=== PATIENT | female | born 1975 | race Caucasian/White ===

== ENCOUNTER → 2022-10-25 | Outpatient (CLI) | payer BC | END | disposition home or self-care (01) | LOC: XYW 08:49 | PROVIDERS: ATTEND Internal Medicine | DX: R07.1 Chest pain on breathing (principal) | CPT/HCPCS: 93306 ==

== ENCOUNTER → 2023-01-05 | Outpatient (CLI) | payer BC ==
[~2023-01-05] VITALS: Ht 152.4 cm; Wt 68.0 kg
[~2023-01-05] MED LIST: ADENOSINE 57 MG in GIVE UN-DILUTED 0 ML IV ONE
== END | disposition home or self-care (01) ==
LOC: XYW 08:29
PROVIDERS: ATTEND Internal Medicine
DX: R07.9 Chest pain, unspecified (principal)
CPT/HCPCS: 78452; 93017; A9500; J0153

== ENCOUNTER 2023-02-15 06:48 | Day surgery (SDC) | payer BC ==
[2023-02-15] VITALS (10 sets, daily range): BP systolic 94–110; BP diastolic 56–68; PULSE 47–71; RESP 10–14; O2SAT 98–100
[~2023-02-15] VITALS: Ht 152.4 cm; Wt 70.3 kg
[~2023-02-15 06:48] MED LIST changes: -ADENOSINE 57 MG in GIVE UN-DILUTED 0 ML IV ONE; +ASCO500T11 PO; +CHOL20007 PO; +FERR-7 PO; +MULT-1018 PO
[2023-02-15] MEDS ORDERED: IODIXANOL 320MG/ML 100ML BTL IV ONE (10:37)
[2023-02-15] MEDS ORDERED: LIDOCAINE 2%HCL (LOCAL ANESTH.) INJ 10ml MDV ONE (10:37)
[2023-02-15] MEDS ORDERED: LIDOCAINE 2%HCL (LOCAL ANESTH.) INJ 20ML MDV ONE (10:39)
[2023-02-15] MEDS ORDERED: fentaNYL CITRATE 100 MCG/2 ML VL ONE (10:42)
[2023-02-15] MEDS ORDERED: ANGIOMAX 250 MG VIAL IV ONE (10:42)
[2023-02-15] MEDS ORDERED: SODIUM CHL 0.9% 0 ML ONE (10:43)
[2023-02-15] MEDS ORDERED: MIDAZOLAM HCL 2MG/2ML 2ml VIAL (1mg/ml) ONE (10:43)
== END 2023-02-15 13:45 | disposition home or self-care (01) ==
LOC: CATH 06:48
PROVIDERS: ATTEND Internal Medicine
DX: R94.39 Abnormal result of other cardiovascular function study (principal)
CPT/HCPCS: 93460; C1757; C1894; J1644; J2001; J2250; J3010; Q9967; 99152; 99153